=== PATIENT | male | born 1970 | race Caucasian/White ===

== ENCOUNTER 2017-10-07 09:01 | Emergency (ER) | payer MEDICAID | END 2017-10-07 10:28 | disposition home or self-care (01) | LOC: D.ER 09:01 | DX: J20.9 Acute bronchitis, unspecified (principal); K21.9 Gastro-esophageal reflux disease without esophagitis; F17.200 Nicotine dependence, unspecified, uncomplicated ==

== ENCOUNTER 2019-04-16 09:46 | Emergency (ER) | payer MEDICAID ==
[~2019-04-16] VITALS: Ht 182.9 cm; Wt 96.8 kg
[2019-04-16 09:49] VITALS: Ht 182.9 cm; Wt 96.8 kg
[2019-04-16] MEDS ORDERED: TERBINAFINE15 GM TOPICAL (10:02)
[2019-04-16] MEDS ORDERED: CLEOCIN HCL300 MG PO (10:10)
[2019-04-16] MEDS ORDERED: KEFLEX500 MG PO (10:10)
[2019-04-16 10:12] VITALS: BP 133/77
== END 2019-04-16 10:13 | disposition home or self-care (01) ==
LOC: D.ER 09:46
DX: B35.6 Tinea cruris (principal); N49.2 Inflammatory disorders of scrotum

== ENCOUNTER 2019-04-24 12:25 | Emergency (ER) | payer MEDICAID ==
[~2019-04-24] VITALS: Ht 182.9 cm; Wt 96.8 kg
[~2019-04-24 12:25] MED LIST: CLEOCIN HCL300 MG PO; KEFLEX500 MG PO; TERBINAFINE15 GM TOPICAL
[2019-04-24 12:33] VITALS: Ht 182.9 cm; Wt 96.8 kg
[2019-04-24] MEDS ORDERED: DIFLUCAN200 MG PO (13:43)
[2019-04-24 13:48] VITALS: BP 126/79
== END 2019-04-24 13:51 | disposition home or self-care (01) ==
LOC: D.ER 12:25
DX: B37.49 Other urogenital candidiasis (principal)